=== PATIENT | female | born 1965 | race Caucasian/White ===

== ENCOUNTER 2019-01-15 03:57 | Emergency (ER) | payer BC, OTHER ==
[~2019-01-15] VITALS: Ht 160 cm; Wt 95.3 kg
[~2019-01-15 03:57] MED LIST: ABILIFY10 MG PO; CALCITRATE200 MG PO; CLONAZEPAM 1 MG1 M1 PO; CYMBALTA60 MG PO; LAMICTAL100 MG PO; NORCO 5-325 TA1 EACH PO; OMEPRAZOLE 20 M20 M1 PO; SEROQUEL 25 MG25 M1 PO; UNICOMPLEX M TA1 TA1 PO; VENLAFAXINE H37.5 M2 PO
[2019-01-15 04:23] LABS: BASOPHILS 1.4 % (0.0-2.0); EOSINOPHILS 1.8 % (0.0-3.0); HEMATOCRIT 41.8 % (37.0-47.0); HEMOGLOBIN 14.3 gm/dL (12.0-15.0); LYMPHOCYTES 33.4 % (24.0-44.0); MCH 33.2 pg (26.0-34.0); MCHC 34.2 g/dL (28.0-37.0); MCV 97.1 fL (80.0-100.0); MONOCYTES 4.9 % (1.0-8.0); PLATELET COUNT 332 thou/uL (150-400); POLYS 58.5 % (36.0-66.0); RBC 4.31 mil/uL (4.20-5.00); RDW 13.3 % (10.5-14.5); WBC 10.3 thou/uL (4.0-11.0)
[2019-01-15 04:54] LABS: ANION GAP 13 mmol/L (7-16); BUN 14 mg/dL (7-18); CHLORIDE 106 mmol/L (98-107); CO2 24 mmol/L (21-32); CREATININE 0.8 mg/dL (0.6-1.0); GLUCOSE 104 mg/dL (74-106); POTASSIUM 3.4 mmol/L (3.5-5.1); SODIUM 143 mmol/L (136-145)
[2019-01-15 05:02] LABS: TROPONIN-I <0.06 ng/mL (<0.06)
[2019-01-15 05:25] VITALS: BP 132/66
--- NOTE | 2019-01-15 09:58 | EKG ---
[address] [address] [place] [address] ELECTROCARDIOGRAM REPORT Name: ANUP IZQUIERDO [facility] [id number] ������������������ Admission: 01/15/19 ������������������ Attend Phys: Discharge: 01/15/19 ������������������ Date of : 63 Report #: [id number] ����������������������������������������������������������������� [id number] THIS REPORT FOR: //name// [facility] ED Test Date: 2019-01-15 Test Time: 04:02:22 Pat Name: ANUP IZQUIERDO Department: Room: Gender: F Manager Infrastructure: BAKARI : 1965 Requested By: Alcon De Leon Order Number: [id number] MD: Yoseph Laureano Measurements Intervals [place] Rate: 94 P: 78 VA: 144 QRS: 89 QRSD: 116 T: 36 QT: 349 QTc: 437 Interpretive Statements Sinus rhythm No significant abnormality Compared to ECG 10/22/2015 17:21:49 No significant change was found Electronically Signed On 01-15-2019 9:57:52 CDT by Yoseph Laureano [email or web address] ��������������������������������������������� <ELECTRONICALLY SIGNED> ���������������������������������������� By: Yoseph Laureano MD, [facility] ��������������������������������������������� 01/15/19 [phone] Yoseph Laureano MD, FACC /EPI
== END 2019-01-15 05:26 | disposition home or self-care (01) ==
LOC: ER 03:57
PROVIDERS: Emergency Medicine
DX: R07.89 Other chest pain (principal); Z88.8 Allergy status to other drugs, medicaments and biological substances; Z88.0 Allergy status to penicillin; Z88.2 Allergy status to sulfonamides; Z90.89 Acquired absence of other organs; Z90.49 Acquired absence of other specified parts of digestive tract

== ENCOUNTER → 2019-03-08 | Outpatient (CLI) | payer OTHER | LOC: CAT 10:23 | DX: Z13.6 Encounter for screening for cardiovascular disorders (principal); E78.00 Pure hypercholesterolemia, unspecified; I25.10 Atherosclerotic heart disease of native coronary artery without angina pectoris ==